=== PATIENT | female | born 1995 | race Hispanic/Latino ===

== ENCOUNTER 2017-10-22 15:31 | Observation (INO) | payer MEDICAID ==
[2017-10-22] MEDS ORDERED: LACTATED RINGERS 1000ML 1,000 ML IV SCH (15:45)
[2017-10-22 16:22] LABS: APPEARANCE,URINE Clear (CLEAR); BILIRUBIN,URINE Negative (NEGATIVE); COLOR,URINE Yellow (YELLOW); GLUCOSE, URINE (UA) Negative (NEGATIVE); KETONES,URINE 40 mg/dL (NEGATIVE); LEUKOCYTE ESTERASE ,URINE Moderate (NEGATIVE); NITRATE,URINE Negative (NEGATIVE); OCCULT BLOOD,URINE Negative (NEGATIVE); PH,URINE 5.5 (5.0-8.0); PROTEIN,URINE Negative (NEGATIVE)
[2017-10-22 16:28] LABS: BACTERIA,URINE None Seen /HPF (None Seen); MUCUS,URINE Few LPF (None Seen); RBC,URINE None Seen /HPF (0-1)
[2017-10-22] MEDS ORDERED: LACTATED RINGERS 1000ML 1,000 ML IV ONE (18:19)
== END 2017-10-22 19:40 | disposition home or self-care (01) ==
LOC: LDH 15:31
PROVIDERS: ADMIT Obstetrics & Gynecology; ATTEND Obstetrics & Gynecology
DX: O62.9 Abnormality of forces of labor, unspecified (principal); Z3A.35 35 weeks gestation of pregnancy
CPT/HCPCS: 81001; G0378 ×5; J7120

== ENCOUNTER 2017-11-13 19:24 | Inpatient (IN) | payer MEDICAID ==
[~2017-11-13] VITALS: Ht 154.9 cm; Wt 63.0 kg
[2017-11-13 20:00] VITALS: BP 120/78
[2017-11-13 20:11] LABS: APPEARANCE,URINE Clear (CLEAR); BILIRUBIN,URINE Negative (NEGATIVE); COLOR,URINE Yellow (YELLOW); GLUCOSE, URINE (UA) 500 mg/dL (NEGATIVE); KETONES,URINE Negative (NEGATIVE); LEUKOCYTE ESTERASE ,URINE Moderate (NEGATIVE); NITRATE,URINE Negative (NEGATIVE); OCCULT BLOOD,URINE Negative (NEGATIVE); PH,URINE 7.5 (5.0-8.0); PROTEIN,URINE Negative (NEGATIVE)
[2017-11-13 20:18] LABS: BACTERIA,URINE Rare /HPF (None Seen); RBC,URINE 0-1 /HPF (0-1); SQUAMOUS EPITHELIAL CELL,UR Few /LPF (0-2)
[2017-11-13] MEDS: LACTATED RINGERS 1000ML 1,000 ML IV PRN (20:38)
[2017-11-13 20:59] LABS: HEMATOCRIT 29.3 % (36-48); MEAN CORPUSCULAR HEMOGLOBIN 27.3 pg (27.0-33.0); MEAN CORPUSCULAR HGB CONC 35.5 g/dL (32.0-36.0); MEAN CORPUSCULAR VOLUME 76.8 fL (79-99); PLATELET COUNT (AUTO) 286 K/uL (130-400); RED BLOOD CELL COUNT(AUTO) 3.81 MIL/uL (4.00-5.50); RED CELL DISTRIBUTION WIDTH 15.1 % (11.0-15.5); WHITE BLOOD COUNT (AUTO) 9.4 K/uL (4.8-10.8)
[2017-11-14] MEDS ORDERED: OXYTOCIN 10 USP UNITS/ML 20 UNIT in LACTATED RINGERS 1000ML 1,000 ML IV SCH ×2 (03:00→06:30)
[2017-11-14] MEDS ORDERED: LACTATED RINGERS 1000ML 1,000 ML IV ONE ×2 (04:35→11:30)
[2017-11-14] MEDS ORDERED: OXYTOCIN 10 USP UNITS/ML ONE ×2 (04:36→11:30)
[2017-11-14] MEDS: LACTATED RINGERS 1000ML 1,000 ML IV PRN (06:32)
[2017-11-14] MEDS ORDERED: MEPERIDINE-PF 50 MG/ML SYG IVP SCH (09:15)
[2017-11-14] MEDS ORDERED: PROMETHAZINE HCL 25 MG/ML 1ML AMPULE IM SCH (09:15)
[2017-11-14] MEDS ORDERED: LIDOCAINE HCL 1% 20 ML VIAL ONE (09:49)
[2017-11-14 11:55] VITALS: BP 117/67
[2017-11-14] MEDS ORDERED: PREN-154 PO (11:59)
[2017-11-14] MEDS ORDERED: DIPH,PERTUSS(ACELL),TET VAC/PF 0.5 ML VIAL IM PRN (12:15)
[2017-11-14] MEDS ORDERED: MEASLES/MUMPS/RUBELLA VACCINE, LIVE 0.5 ML/VIAL SQ PRN (12:15)
[2017-11-14] MEDS ORDERED: WITCH HAZEL 1 PAD TP PRN (12:15)
[2017-11-14] MEDS ORDERED: LANOLIN 30GM OINTMENT TP PRN (12:15)
[2017-11-14] MEDS ORDERED: ACETAMINOPHEN 325 MG TAB PO PRN (12:15)
[2017-11-14] MEDS ORDERED: BENZOCAINE/LANOLIN/ALOE VERA 60 ML AEROSOL TP PRN (12:15)
[2017-11-14] MEDS: IBUPROFEN 600 MG TABLET PO PRN (14:10)
[2017-11-14 15:30] VITALS: BP 119/58
[2017-11-14 19:23] VITALS: BP 102/57
[2017-11-14] MEDS: DOCUSATE SODIUM 100 MG CAP PO SCH (20:57)
[2017-11-14 23:04] VITALS: BP 122/70
[2017-11-15 03:21] VITALS: BP 104/59
[2017-11-15 05:38] LABS: HEMATOCRIT 29.1 % (36-48); MEAN CORPUSCULAR HEMOGLOBIN 25.8 pg (27.0-33.0); MEAN CORPUSCULAR HGB CONC 33.4 g/dL (32.0-36.0); MEAN CORPUSCULAR VOLUME 77.4 fL (79-99); PLATELET COUNT (AUTO) 284 K/uL (130-400); RED BLOOD CELL COUNT(AUTO) 3.76 MIL/uL (4.00-5.50); RED CELL DISTRIBUTION WIDTH 15.2 % (11.0-15.5); WHITE BLOOD COUNT (AUTO) 12.1 K/uL (4.8-10.8)
[2017-11-15 07:30] LABS: HEPATITIS Bs ANTIGEN SCREEN P Negative (Negative)
[2017-11-15 07:42] VITALS: BP 102/58
[2017-11-15] MEDS: IBUPROFEN 600 MG TABLET PO PRN (08:33)
[2017-11-15] MEDS: DOCUSATE SODIUM 100 MG CAP PO SCH (08:33)
[2017-11-15 11:27] VITALS: BP 108/60
== END 2017-11-15 13:05 | disposition home or self-care (01) | DRG 560 ==
LOC: LDH 19:24 → WSH 11-14 11:55
PROVIDERS: ADMIT Obstetrics & Gynecology; ATTEND Obstetrics & Gynecology
PROC: 3E033VJ Introduction of Other Hormone into Peripheral Vein, Percutaneous Approach (ICD-10-PCS; principal; 2017-11-14)
PROC: 10E0XZZ Delivery of Products of Conception, External Approach (ICD-10-PCS; 2017-11-14)
PROC: 10907ZC Drainage of Amniotic Fluid, Therapeutic from Products of Conception, Via Natural or Artificial Opening (ICD-10-PCS; 2017-11-14)
PROC: 3E0234Z Introduction of Serum, Toxoid and Vaccine into Muscle, Percutaneous Approach (ICD-10-PCS; 2017-11-14)
PROC: 0KQM0ZZ Repair Perineum Muscle, Open Approach (ICD-10-PCS; 2017-11-14)
DX: O69.1XX0 Labor and delivery complicated by cord around neck, with compression, not applicable or unspecified (principal); O98.32 Other infections with a predominantly sexual mode of transmission complicating childbirth; O70.1 Second degree perineal laceration during delivery; Z3A.38 38 weeks gestation of pregnancy; Z37.0 Single live birth; A56.8 Sexually transmitted chlamydial infection of other sites; Z23 Encounter for immunization
CPT/HCPCS: 36415; 81001; 85027; 86592; 86850; 86900; 86901; 87340; 90707; 90715; A4351; A4606; J2175; J2550; J2590; J7120

== ENCOUNTER 2021-12-29 07:01 | Inpatient (IN) | payer MEDICAID ==
[2021-12-29] VITALS (11 sets, daily range): BP systolic 92–128; BP diastolic 49–80
[~2021-12-29] VITALS: Ht 154.9 cm; Wt 70.8 kg
[~2021-12-29 07:01] MED LIST: PREN-154 PO
[2021-12-29] MEDS ORDERED: PROMETHAZINE HCL 25 MG/ML 1ML AMPULE IM PRN (08:00)
[2021-12-29] MEDS ORDERED: MEPERIDINE-PF 50 MG/ML SYG IVP PRN (08:00)
[2021-12-29] MEDS ORDERED: OXYTOCIN-LR 20 UNITS/1000 ML 1,000 ML IV SCH ×2 (08:00→12:00)
[2021-12-29] MEDS ORDERED: LACTATED RINGERS 1000ML 1,000 ML IV PRN (08:00)
[2021-12-29] MEDS ORDERED: AMPICILLIN 2GM+NS 100ML 100 ML IV SCH (08:00)
[2021-12-29 08:13] LABS: HEMATOCRIT 33.2 % (36-48); MEAN CORPUSCULAR HEMOGLOBIN 27.4 pg (27.0-33.0); MEAN CORPUSCULAR HGB CONC 33.1 g/dL (32.0-36.0); MEAN CORPUSCULAR VOLUME 82.6 fL (79-99); RED BLOOD CELL COUNT(AUTO) 4.02 MIL/uL (4.00-5.50); RED CELL DISTRIBUTION WIDTH 13.2 % (11.0-15.5)
[2021-12-29 08:20] LABS: APPEARANCE,URINE Cloudy (CLEAR); BILIRUBIN,URINE Negative (NEGATIVE); COLOR,URINE Yellow (YELLOW); GLUCOSE, URINE (UA) Negative (NEGATIVE); KETONES,URINE Negative (NEGATIVE); LEUKOCYTE ESTERASE ,URINE Large (NEGATIVE); NITRATE,URINE Negative (NEGATIVE); OCCULT BLOOD,URINE Negative (NEGATIVE); PROTEIN,URINE Trace mg/dL (NEGATIVE)
[2021-12-29 08:45] LABS: BACTERIA,URINE Few /HPF (None Seen); MUCUS,URINE Rare LPF (None Seen); RBC,URINE 0-1 /HPF (0-1); SQUAMOUS EPITHELIAL CELL,UR Moderate /HPF (0-2)
[2021-12-29 08:46] LABS: YEAST,URINE BUDDING Few /HPF (None Seen)
[2021-12-29 09:02] LABS: RAPID PLASMA REAGIN NONREACTIVE (NONREACTIVE)
[2021-12-29] MEDS ORDERED: ACETAMINOPHEN WITH CODEINE 1 TAB TAB PO PRN (12:00)
[2021-12-29] MEDS ORDERED: BENZOCAINE/LANOLIN/ALOE VERA 60 ML AEROSOL TP PRN (12:00)
[2021-12-29] MEDS ORDERED: LANOLIN 30GM OINTMENT TP PRN (12:00)
[2021-12-29] MEDS ORDERED: DIPH,PERTUSS(ACELL),TET VAC/PF 0.5 ML VIAL IM PRN (12:00)
[2021-12-29] MEDS ORDERED: WITCH HAZEL 1 PAD TP PRN (12:00)
[2021-12-29] MEDS ORDERED: MEASLES/MUMPS/RUBELLA VACCINE, LIVE 0.5 ML/VIAL SQ PRN (12:00)
[2021-12-29] MEDS ORDERED: ACETAMINOPHEN 325 MG TAB PO PRN (12:00)
[2021-12-29] MEDS: IBUPROFEN 600 MG TABLET PO PRN (12:41)
[2021-12-29] MEDS ORDERED: METHYLERGONOVINE MALEATE 0.2 MG/1 ML ML IM SCH (15:00)
[2021-12-29] MEDS: AMPICILLIN 1GM+NS 50ML 50 ML IV SCH ×3 (20:00→20:24)
[2021-12-29] MEDS: DOCUSATE SODIUM 100 MG CAP PO SCH (20:46)
[2021-12-30 03:44] VITALS: BP 101/70
[2021-12-30 06:40] LABS: HEMATOCRIT 32.1 % (36-48); MEAN CORPUSCULAR HEMOGLOBIN 26.8 pg (27.0-33.0); MEAN CORPUSCULAR HGB CONC 32.4 g/dL (32.0-36.0); MEAN CORPUSCULAR VOLUME 82.7 fL (79-99); RED BLOOD CELL COUNT(AUTO) 3.88 MIL/uL (4.00-5.50); WHITE BLOOD COUNT (AUTO) 11.5 K/uL (4.8-10.8)
[2021-12-30 07:59] VITALS: BP 104/65
[2021-12-30] MEDS: DOCUSATE SODIUM 100 MG CAP PO SCH (08:43)
[2021-12-30] MEDS: IBUPROFEN 600 MG TABLET PO PRN (08:44)
[2021-12-30 11:25] VITALS: BP 103/57
[2021-12-30] MEDS ORDERED: IBUP-2088 PO (15:35)
== END 2021-12-30 16:10 | disposition home or self-care (01) | DRG 560 ==
LOC: EDH 07:01 → OBSVTOIN 07:02 → LDH 07:02 → EDH 07:14 → LDH 09:18 → WSH 11:00
PROVIDERS: ADMIT Obstetrics & Gynecology; ATTEND Obstetrics & Gynecology
PROC: 0HQ9XZZ Repair Perineum Skin, External Approach (ICD-10-PCS; principal; 2021-12-29)
PROC: 10E0XZZ Delivery of Products of Conception, External Approach (ICD-10-PCS; 2021-12-29)
PROC: 3E0234Z Introduction of Serum, Toxoid and Vaccine into Muscle, Percutaneous Approach (ICD-10-PCS; 2021-12-29)
PROC: 3E0134Z Introduction of Serum, Toxoid and Vaccine into Subcutaneous Tissue, Percutaneous Approach (ICD-10-PCS; 2021-12-29)
DX: O99.824 Streptococcus B carrier state complicating childbirth (principal); Z37.0 Single live birth; Z23 Encounter for immunization; O70.0 First degree perineal laceration during delivery; Z3A.38 38 weeks gestation of pregnancy
CPT/HCPCS: 36415; 81001; 85027; 86592; 86701; 86850; 86900; 86901; 87088; 87340; 87390; 90707; 90715; A4351; G0378; J0290; J2175; J2210; J2550; J2590